=== PATIENT | female | born 1960 ===

== ENCOUNTER → 2022-05-04 14:26 | Outpatient (CLI) | payer BC, SELFPAY ==
--- NOTE | ~2022-05-04 | MR_ITS ---
EXAMINATION: MR pelvis wo/w con DATE: 05/04/2022 15:34 INDICATION: Pelvic mass in female. Right groin pain. TECHNIQUE: Magnetic resonance imaging (MRI) of the pelvis was performed without and with 14 mL MultiH ance intravenous contrast. COMPARISON: None. FINDINGS: There are no dilated loops of bowel. There are no pathologically enlarged lymph nodes. There is no fr ee intraperitoneal fluid. The endometrial complex measures 7 mm in thickness. There are nabothian cys ts in the cervix. There is a 2.7 cm mass in right ovary containing a fluid layer and fat. IMPRESSION: 1. 2.7 cm mass in right ovary containing fat, consistent with a dermoid. 2. Endometrial complex thickened to 7 mm. The differential diagnosis includes endometrial hyperplasia , polyp, and carcinoma. Biopsy is recommended. Reviewed, dictated and finalized at location A. [facility] IMPRESSION: 1. 2.7 cm mass in right ovary containing fat, consistent with a dermoid. 2. Endometrial complex thickened to 7 mm. The differential diagnosis includes e ndometrial hyperplasia, polyp, and carcinoma. Biopsy is recommended.
== END ==
DX: R19.00 Intra-abdominal and pelvic swelling, mass and lump, unspecified site (principal); R10.31 Right lower quadrant pain; N83.201 Unspecified ovarian cyst, right side
CPT/HCPCS: 72197; A9577

== ENCOUNTER 2023-08-30 13:31 | Outpatient (CLI) | payer OTHER, SELFPAY ==
--- NOTE | ~2023-08-30 | CT_ITS ---
EXAMINATION: CT abdomen pelvis wo con DATE: 08/30/2023 13:51 INDICATION: Right inguinal pain. TECHNIQUE: Computed tomography (CT) of the abdomen and pelvis was performed without intravenous contr ast. Automated exposure control and iterative reconstruction technique were employed. The dose-length product was 457.35 mGy-cm. COMPARISON: Pelvis MRI 05/04/2022 FINDINGS: The visualized portions of the lung bases demonstrate groundglass opacities in the lower lo bes and right middle lobe. There is mild scarring in paraspinal right lower lobe. There is mild atele ctasis bilaterally. No pleural effusion. The heart size is normal. There is a trace pericardial effus ion. The liver, gallbladder, spleen, pancreas, adrenal glands, and right kidney are normal. There is a 1 mm stone in left kidney. There are no dilated loops of bowel. The appendix is not visualized. The re are no pathologically enlarged lymph nodes. There is no free intraperitoneal fluid. There is an um bilical hernia containing fat. There is prominent fat in the inguinal canals. There are chronic bilat eral L5 pars defects. There is 5 mm anterolisthesis of L5 on S1. There is moderate lumbar spondylosis . IMPRESSION: 1. Prominent fat in the inguinal canals that may be hernias. 2. Groundglass opacities in the lower lobes and right middle lobe, consistent with atelectasis versus pneumonia. 3. Umbilical hernia containing fat. Reviewed, dictated and finalized at location A. IMPRESSION: 1. Prominent fat in the inguinal canals that may be hernias. 2. Groundglass opacities in the lower lobes and right middle lobe, consistent w ith atelectasis versus pneumonia. 3. Umbilical hernia containing fat.
== END 2023-08-30 13:32 ==
LOC: MICIMG 13:33
DX: K42.9 Umbilical hernia without obstruction or gangrene (principal); R91.8 Other nonspecific abnormal finding of lung field
CPT/HCPCS: 74176